=== PATIENT | female | born 1975 | race African-American/Black ===

== ENCOUNTER 2016-08-05 17:43 | Emergency (ER) | payer MEDICAID, OTHER ==
[~2016-08-05] VITALS: Ht 157.5 cm; Wt 108.0 kg
[~2016-08-05 17:43] MED LIST: AMLODAPINE; CLONIDINE; HCTZ; INSULIN; LOSA50TA3; LOSARTAN; METO10TA3
[2016-08-05] MEDS ORDERED: METHYLPREDNISOLONE SOD SUCC 125 MG/2 ML VIAL IV STA (18:13)
[2016-08-05] MEDS ORDERED: CEFTRIAXONE 1 G PREMIX 50 ML IV ONE (18:15)
[2016-08-05] MEDS ORDERED: IPRATROPIUM/ALBUTEROL 0.5-3(2.5)MG/3ML NEB HHN ONE (18:15)
[2016-08-05] MEDS ORDERED: AZITHROMYCIN 500 MG TABLET PO ONE (18:15)
[2016-08-05 19:28] LABS: BASOPHILS % 0.8 % (0.0-2.0); EOSINOPHILS % 0.5 % (0.0-5.0); HEMATOCRIT. 37.3 % (36.0-48.0); LYMPHOCYTES % 36.4 % (20.0-50.0); MEAN CORPUSCULAR HEMOGLOBIN 31.7 pg (28.0-32.0); MEAN CORPUSCULAR HGB CONC 32.1 g/dL (31.0-37.0); MEAN PLATELET VOLUME 9.8 fl (7.4-10.4); MONOCYTES % 9.5 % (2.0-8.0); NEUTROPHILS % 52.8 % (40.0-76.0); PLATELET 195 x1000/uL (130-400); RED BLOOD CELL COUNT 3.77 mill/uL (4.2-5.4); RED CELL DISTRIBUTION WIDTH 18.3 % (11.6-14.6); WHITE BLOOD COUNT 6.7 x1000/uL (4.5-11.0)
[2016-08-05] MEDS ORDERED: PREDNISONE 20MG TABLET PO ONE (19:30)
[2016-08-05] MEDS ORDERED: LORAZEPAM 1MG TABLET PO ONE (19:30)
[2016-08-05 19:32] LABS: CHLORIDE 97 mEq/L (98-107); INDEX HEMOLYSI 1 (1-3); INDEX ICTERIC 1 (1-4); INDEX LIPEMIC 1 (1-3)
[2016-08-05 19:33] LABS: ALBUMIN 3.6 g/dL (3.4-5.0); CALCIUM 9.4 mg/dL (8.5-10.1); INR 1.1; LIPASE 114 IU/L (73-393); PARTIAL THROMBOPLASTIN TIME 24.3 sec (24.0-34.0); PROTHROMBIN TIME 10.9 sec
[2016-08-05 19:39] LABS: ALANINE AMINOTRANSFERASE 11 IU/L (13-61); ANION GAP 19; CARBON DIOXIDE 25 mEq/L (21-32); UREA NITROGEN BLOOD 27 mg/dL (7-21); eGFR 9 mL/min (>60)
[2016-08-05 19:42] LABS: LACTIC ACID 3.1 mmol/L (0.4-2.0); NT PRO B-TYPE NATRIURETIC PEP 3029 pg/mL (5-125); TROPONIN I 0.03 ng/mL (0.00-0.04)
[2016-08-05] MEDS ORDERED: CEFTRIAXONE SODIUM 1 G/VIAL IM ONE (19:45)
[2016-08-05] MEDS ORDERED: LIDOCAINE HCL 1% 20ML VIAL (Pyxis) INJ INFIL ONE (20:00)
[2016-08-05] MEDS ORDERED: MORPHINE SULFATE 10 MG/ML CPJ IM ONE (21:00)
[2016-08-05] MEDS ORDERED: ONDANSETRON HCL 4MG/2ML VIAL IV ONE (22:00)
[2016-08-05] MEDS ORDERED: POTASSIUM CHLORIDE 40MEQ/30ML UDC PO ONE (22:15)
[2016-08-05] MEDS: POTASSIUM CHLORIDE 20MEQ TABLET SR PO NR (22:29)
[2016-08-05] MEDS ORDERED: HYDRALAZINE 20MG/ML VIAL IV NR (22:30)
[2016-08-05] MEDS ORDERED: HYDRALAZINE (NEO) 1MG/ML IV ONE (22:30)
[2016-08-05 22:39] VITALS: BP 218/95
== END 2016-08-05 22:48 | disposition short-term general hospital (02) ==
LOC: ER 17:43
DX: R06.02 Shortness of breath (principal); Z88.1 Allergy status to other antibiotic agents; Z88.8 Allergy status to other drugs, medicaments and biological substances; Z79.899 Other long term (current) drug therapy; E11.22 Type 2 diabetes mellitus with diabetic chronic kidney disease; Z99.2 Dependence on renal dialysis; F17.200 Nicotine dependence, unspecified, uncomplicated; I12.0 Hypertensive chronic kidney disease with stage 5 chronic kidney disease or end stage renal disease; N18.6 End stage renal disease
CPT/HCPCS: 36415; 71010; 80053; 83605; 83690; 83880; 84484; 85025; 85610; 85730; 87040; 93005; 94640; 96372; 96374; 96375; 99285; C1893; J0360; J0696; J2270; J2405; J3490; J7512; Z7610; J7620

== ENCOUNTER 2016-12-08 02:08 | Inpatient (IN) | payer OTHER, MEDICAID ==
[~2016-12-08] VITALS: Ht 162.6 cm; Wt 108.4 kg
[2016-12-08] MEDS ORDERED: ASPIRIN 81MG TABLET PO STA (03:14)
[2016-12-08] MEDS ORDERED: NITROGLYCERIN OINT 1GM/INCH UDPKT TD STA (03:14)
[2016-12-08] MEDS ORDERED: HYDRALAZINE 20MG/ML VIAL IV ONE (03:15)
[2016-12-08] MEDS ORDERED: LORAZEPAM 2MG/ML CPJ IV ONE (04:15)
[2016-12-08] MEDS ORDERED: MORPHINE SULFATE 4 MG/ML CPJ (NOT FOR IM USE) IV ONE (04:15)
[2016-12-08] MEDS ORDERED: ONDANSETRON HCL 4MG/2ML VIAL IV ONE (04:15)
[2016-12-08 04:27] LABS: BASOPHILS % 0.6 % (0.0-2.0); EOSINOPHILS % 0.4 % (0.0-5.0); HEMATOCRIT. 33.8 % (36.0-48.0); HEMOGLOBIN. 10.9 g/dL (12.0-16.0); LYMPHOCYTES % 8.8 % (20.0-50.0); MEAN CORPUSCULAR HEMOGLOBIN 32.2 pg (28.0-32.0); MEAN CORPUSCULAR VOLUME 99.7 fL (81.0-99.0); MEAN PLATELET VOLUME 9.9 fl (7.4-10.4); NEUTROPHILS % 82.2 % (40.0-76.0); PLATELET 234 x1000/uL (130-400); RED BLOOD CELL COUNT 3.39 mill/uL (4.2-5.4); RED CELL DISTRIBUTION WIDTH 17.5 % (11.6-14.6)
[2016-12-08 04:35] LABS: HCG SCREEN NEGATIVE; PARTIAL THROMBOPLASTIN TIME 21.2 sec (24.0-34.0); PROTHROMBIN TIME 10.7 sec
[2016-12-08 04:45] LABS: CARBON DIOXIDE 26 mEq/L (21-32); CHLORIDE 94 mEq/L (98-107); TROPONIN I 0.02 ng/mL (0.00-0.04)
[2016-12-08] MEDS ORDERED: LABETALOL 5MG/ML SYR 20 MG/4 ML SYRINGE IV ONE (04:45)
[2016-12-08 04:48] LABS: PHOSPHORUS 0.4 mg/dL (2.5-4.9)
[2016-12-08] MEDS ORDERED: SODIUM PHOS,M-BASIC-D-BASIC 20 MM in DEXT 5% WATER 243.3333 ML IV ONE (05:00)
[2016-12-08] MEDS ORDERED: INSULIN REGULAR (HUMULIN R) 300UNITS/3ML IV ONE (05:00)
[2016-12-08 08:25] VITALS: BP 219/94
[2016-12-08] MEDS ORDERED: CLOP75TA2 PO (09:13)
[2016-12-08] MEDS ORDERED: METROPOLOL PO (09:15)
[2016-12-08] MEDS ORDERED: ACETAMINOPHEN 325MG TABLET PO PRN (09:45)
[2016-12-08] MEDS ORDERED: LORAZEPAM 2MG/ML CPJ IV PRN (09:45)
[2016-12-08] MEDS ORDERED: NITROGLYCERIN 0.4MG TABLET SL SL PRN (09:45)
[2016-12-08] MEDS ORDERED: IPRATROPIUM/ALBUTEROL 0.5-3(2.5)MG/3ML NEB INH PRN (09:45)
[2016-12-08] MEDS ORDERED: MAGNESIUM/ALUMINUM HYDROXIDE/SIMETHICONE 30ML UDC PO PRN (09:45)
[2016-12-08] MEDS ORDERED: DIPHENHYDRAMINE 50MG/ML VIAL IV PRN (09:45)
[2016-12-08] MEDS ORDERED: CLONIDINE 0.1MG TABLET PO PRN (09:45)
[2016-12-08] MEDS ORDERED: NA PHOS,M-B/NA PHOS,DI-BA ENEMA 118ML PR PRN (09:45)
[2016-12-08] MEDS ORDERED: DOCUSATE SODIUM 100MG CAPSULE PO PRN (09:45)
[2016-12-08] MEDS ORDERED: DEXTROSE 50% WATER 50ML SYRINGE IV PRN ×2 (09:45→13:30)
[2016-12-08] MEDS ORDERED: GUAIFENESIN 200MG/10ML SUGAR FREE UDC PO PRN (09:45)
[2016-12-08] MEDS ORDERED: TRAMADOL 50MG TABLET PO PRN (09:45)
[2016-12-08] MEDS: FOLIC ACID/VITAMIN B COMP W-C TABLET PO SCH (10:26)
[2016-12-08] MEDS: ONDANSETRON HCL 4MG/2ML VIAL IV PRN ×2 (10:27→16:40)
[2016-12-08] MEDS: AMLODIPINE 10MG TABLET PO SCH (10:27)
[2016-12-08] MEDS: MORPHINE SULFATE 4 MG/ML CPJ (NOT FOR IM USE) IV PRN ×2 (10:28→16:41)
[2016-12-08] MEDS: INSULIN LISPRO 100 UNITS/ML SUBCUT SCH ×5 (11:32→21:00)
[2016-12-08] MEDS: LISINOPRIL 20MG TABLET PO SCH ×2 (11:43→21:52)
[2016-12-08] MEDS: PANTOPRAZOLE SODIUM 40 MG/VIAL IV SCH (11:43)
[2016-12-08] MEDS: METOPROLOL TARTRATE 25MG TABLET PO SCH ×2 (11:43→21:52)
[2016-12-08] MEDS: INSULIN DETEMIR UD 100 UNITS/ML SYR SUBCUT SCH (11:51)
[2016-12-08 12:00] VITALS: BP 200/76
[2016-12-08] MEDS ORDERED: BLOOD SUGAR DIAGNOSTIC STRIP TEST SCH (12:40)
[2016-12-08] MEDS ORDERED: INSULIN LISPRO 100 UNITS/ML SUBCUT SCH ×2 (13:10→18:10)
[2016-12-08] MEDS: METOCLOPRAMIDE HCL 5MG TABLET PO SCH ×3 (13:35→21:52)
[2016-12-08] MEDS: SUCRALFATE 1 G/10 ML UDC PO SCH ×3 (13:36→21:52)
[2016-12-08] MEDS: HYDRALAZINE HCL 50MG TABLET PO SCH ×2 (13:36→18:00)
[2016-12-08] MEDS: ERYTHROMYCIN LACTOBIONATE 500 MG in SODIUM CHLORIDE 0.9% 100 ML IV SCH ×2 (13:36→17:58)
[2016-12-08] MEDS ORDERED: HYDRALAZINE HCL 50MG TABLET PO SCH (14:00)
[2016-12-08 15:59] LABS: CREATINE KINASE MB FRACTION 1.2 ng/mL (0.5-3.6); TROPONIN I 0.03 ng/mL (0.00-0.04)
[2016-12-08 16:00] VITALS: BP 144/65
[2016-12-08] MEDS: BLOOD SUGAR DIAGNOSTIC STRIP TEST SCH ×2 (16:57→21:53)
[2016-12-08 20:00] VITALS: BP 154/70
[2016-12-08] MEDS ORDERED: ZOLPIDEM TARTRATE 5MG TABLET PO PRN (21:00)
[2016-12-09] VITALS (7 sets, daily range): BP systolic 104–146; BP diastolic 53–73
[2016-12-09 00:47] LABS: CREATINE KINASE MB FRACTION 1.4 ng/mL (0.5-3.6); TROPONIN I 0.04 ng/mL (0.00-0.04)
[2016-12-09] MEDS: HYDRALAZINE HCL 50MG TABLET PO SCH ×4 (01:12→17:50)
[2016-12-09] MEDS: SUCRALFATE 1 G/10 ML UDC PO SCH ×4 (06:45→20:12)
[2016-12-09] MEDS: METOCLOPRAMIDE HCL 5MG TABLET PO SCH ×4 (06:45→20:12)
[2016-12-09] MEDS: INSULIN LISPRO 100 UNITS/ML SUBCUT SCH ×6 (07:40→17:48)
[2016-12-09] MEDS: BLOOD SUGAR DIAGNOSTIC STRIP TEST SCH ×3 (07:40→17:40)
[2016-12-09] MEDS: FOLIC ACID/VITAMIN B COMP W-C TABLET PO SCH (08:13)
[2016-12-09] MEDS: METOPROLOL TARTRATE 25MG TABLET PO SCH (08:14)
[2016-12-09] MEDS: LISINOPRIL 20MG TABLET PO SCH (08:14)
[2016-12-09] MEDS: AMLODIPINE 10MG TABLET PO SCH (08:14)
[2016-12-09] MEDS: PANTOPRAZOLE SODIUM 40 MG/VIAL IV SCH (09:00)
[2016-12-09] MEDS: INSULIN DETEMIR UD 100 UNITS/ML SYR SUBCUT SCH (10:00)
[2016-12-09] MEDS ORDERED: PANTOPRAZOLE 40MG DR TABLET PO SCH (10:30)
== END 2016-12-09 21:20 | disposition short-term general hospital (02) | DRG 73 ==
LOC: ER 02:08 → 7WST 04:47 → EDBEDREQ 04:51 → ENRESERV 04:56
PROVIDERS: ADMIT Internal Medicine; ATTEND Internal Medicine
PROC: 5A1D00Z (ICD-10-PCS; principal; 2016-12-09)
DX: E11.43 Type 2 diabetes mellitus with diabetic autonomic (poly)neuropathy (principal); N18.6 End stage renal disease; I12.0 Hypertensive chronic kidney disease with stage 5 chronic kidney disease or end stage renal disease; E87.1 Hypo-osmolality and hyponatremia; Z68.41 Body mass index [BMI] 40.0-44.9, adult; I16.1 Hypertensive emergency; N17.9 Acute kidney failure, unspecified; K31.84 Gastroparesis; E11.65 Type 2 diabetes mellitus with hyperglycemia; E83.39 Other disorders of phosphorus metabolism; N28.1 Cyst of kidney, acquired; E66.9 Obesity, unspecified; E11.22 Type 2 diabetes mellitus with diabetic chronic kidney disease; Z99.2 Dependence on renal dialysis; Z90.49 Acquired absence of other specified parts of digestive tract; Z88.6 Allergy status to analgesic agent; Z88.1 Allergy status to other antibiotic agents; Z88.8 Allergy status to other drugs, medicaments and biological substances; Z86.73 Personal history of transient ischemic attack (TIA), and cerebral infarction without residual deficits; Z83.3 Family history of diabetes mellitus
CPT/HCPCS: 36415; 71010; 74176; 80053; 80061; 82550; 82553; 82962; 83036; 83690; 83735; 84100; 84443; 84484; 84703; 85025; 85610; 85730; 93005; 96365; 96366; 96375; 99291; C1893; C9113; J0360; J1364; J1815; J2060; J2270; J2405; J3490; J7030; J7050; J7060; J8597

== ENCOUNTER 2017-01-11 12:01 | Emergency (ER) | payer OTHER, MEDICAID ==
[~2017-01-11] VITALS: Ht 165.1 cm; Wt 100.0 kg
[~2017-01-11 12:01] MED LIST changes: +CLOP75TA16 PO; +METROPOLOL PO
[2017-01-11] MEDS: HYDROCHLOROTHIAZIDE 25MG TABLET PO ONE ×2 (14:41→14:54)
[2017-01-11] MEDS ORDERED: HYDRALAZINE HCL 25MG TABLET PO ONE (14:45)
[2017-01-11 14:54] LABS: BASOPHILS % 1.2 % (0.0-2.0); EOSINOPHILS % 1.1 % (0.0-5.0); HEMATOCRIT. 36.1 % (36.0-48.0); HEMOGLOBIN. 11.5 g/dL (12.0-16.0); LYMPHOCYTES % 16.9 % (20.0-50.0); MEAN CORPUSCULAR HEMOGLOBIN 32.1 pg (28.0-32.0); MEAN CORPUSCULAR VOLUME 100.5 fL (81.0-99.0); MEAN PLATELET VOLUME 9.3 fl (7.4-10.4); MONOCYTES % 7.7 % (2.0-8.0); NEUTROPHILS % 73.1 % (40.0-76.0); PLATELET 249 x1000/uL (130-400); RED BLOOD CELL COUNT 3.59 mill/uL (4.2-5.4); RED CELL DISTRIBUTION WIDTH 16.3 % (11.6-14.6)
[2017-01-11 17:01] VITALS: BP 203/96
== END 2017-01-11 17:04 | disposition home or self-care (01) ==
LOC: ER 12:24
DX: E11.649 Type 2 diabetes mellitus with hypoglycemia without coma (principal); I12.0 Hypertensive chronic kidney disease with stage 5 chronic kidney disease or end stage renal disease; N18.6 End stage renal disease; E11.22 Type 2 diabetes mellitus with diabetic chronic kidney disease; Z99.2 Dependence on renal dialysis; Z79.4 Long term (current) use of insulin; Z90.49 Acquired absence of other specified parts of digestive tract; Z79.899 Other long term (current) drug therapy; Z88.1 Allergy status to other antibiotic agents; Z88.8 Allergy status to other drugs, medicaments and biological substances; Z86.73 Personal history of transient ischemic attack (TIA), and cerebral infarction without residual deficits
CPT/HCPCS: 36415; 80048; 82962; 85025; 99284; J7030; Z7610

== ENCOUNTER 2018-06-08 18:31 | Emergency (ER) | payer MEDICARE, MEDICAID ==
[~2018-06-08] VITALS: Ht 167.6 cm; Wt 87.0 kg
[2018-06-08 18:35] VITALS: BP 91/30
== END 2018-06-08 20:59 | disposition left against medical advice (07) ==
LOC: ER 18:31
DX: Z53.21 Procedure and treatment not carried out due to patient leaving prior to being seen by health care provider (principal)

== ENCOUNTER 2019-10-08 09:58 | Inpatient (IN) | payer OTHER, MEDICAID ==
[~2019-10-08] VITALS: Ht 160 cm; Wt 117.9 kg
[~2019-10-08 09:58] MED LIST changes: -CLOP75TA16 PO; +CLOP75TA4 PO
[2019-10-08] MEDS ORDERED: SODIUM CHLORIDE 0.9% 1,000 ML IV ONE (10:10)
[2019-10-08] MEDS: CARVEDILOL 3.125 MG TABLET PO SCH (10:19)
[2019-10-08 10:33] LABS: BASOPHILS % 1.4 % (0.0-2.0); EOSINOPHILS % 1.9 % (0.0-5.0); HEMOGLOBIN. 9.2 g/dL (12.0-16.0); LYMPHOCYTES % 18.4 % (20.0-50.0); MEAN CORPUSCULAR VOLUME 103.1 fL (81.0-99.0); MEAN PLATELET VOLUME 11.3 fl (7.4-10.4); MONOCYTES % 8.1 % (2.0-8.0); NEUTROPHILS % 70.2 % (40.0-76.0); PLATELET 137 x1000/uL (130-400); RED BLOOD CELL COUNT 2.71 mill/uL (4.2-5.4)
[2019-10-08 10:41] LABS: INR 1.1; PROTHROMBIN TIME 11.5 sec (9.6-11.0)
[2019-10-08 10:44] LABS: CHLORIDE 104 mEq/L (98-107)
[2019-10-08] MEDS ORDERED: PIPERACILLIN/TAZ 3.375G PREMIX 50 ML IV ONE (11:15)
[2019-10-08] MEDS ORDERED: VANCOMYCIN 1 G PREMIX 200 ML IV ONE (11:15)
[2019-10-08] MEDS ORDERED: ONDANSETRON HCL 4MG/2ML INJ IV PRN (12:15)
[2019-10-08] MEDS ORDERED: DEXTROSE 50% WATER 50ML SYRINGE IV PRN (12:15)
[2019-10-08] MEDS ORDERED: ACETAMINOPHEN 325MG TABLET PO PRN (12:15)
[2019-10-08 17:00] VITALS: BP_SYST 106; BP_DIAS 60; BP_DIAS 77
[2019-10-08] MEDS: BLOOD SUGAR DIAGNOSTIC STRIP TEST SCH ×3 (17:30→21:19)
[2019-10-08] MEDS: APIXABAN 2.5 MG TABLET PO SCH (17:32)
[2019-10-08] MEDS: SEVELAMER CARBONATE 800 MG TABLET PO SCH (17:32)
[2019-10-08] MEDS: INSULIN LISPRO 100 UNITS/ML SUBCUT SCH ×2 (17:50→21:00)
[2019-10-08] MEDS: INSULIN NPH (HUMULIN-N) 100 UNITS/ML 3ML VIAL SUBCUT SCH (17:50)
[2019-10-08 20:00] VITALS: BP 112/56
[2019-10-08] MEDS: PRAMIPEXOLE DI-HCL 0.25MG TABLET PO SCH (22:35)
[2019-10-09] VITALS (7 sets, daily range): BP systolic 95–164; BP diastolic 27–75
[2019-10-09 06:45] LABS: BASOPHILS % 1.3 % (0.0-2.0); HEMATOCRIT. 25.6 % (36.0-48.0); HEMOGLOBIN. 8.5 g/dL (12.0-16.0); LYMPHOCYTES % 20.2 % (20.0-50.0); MEAN CORPUSCULAR VOLUME 102.1 fL (81.0-99.0); MEAN PLATELET VOLUME 11.8 fl (7.4-10.4); MONOCYTES % 4.6 % (2.0-8.0); NEUTROPHILS % 70.9 % (40.0-76.0); PLATELET 120 x1000/uL (130-400); RED BLOOD CELL COUNT 2.51 mill/uL (4.2-5.4); RED CELL DISTRIBUTION WIDTH 16.6 % (11.6-14.6)
[2019-10-09] MEDS: BLOOD SUGAR DIAGNOSTIC STRIP TEST SCH ×4 (07:43→21:29)
[2019-10-09 08:11] LABS: PHOSPHORUS 5.4 mg/dL (2.5-4.9)
[2019-10-09] MEDS ORDERED: MIDODRINE HCL 5MG TABLET PO PRN (09:00)
[2019-10-09] MEDS: CARVEDILOL 3.125 MG TABLET PO SCH ×2 (09:00→21:49)
[2019-10-09] MEDS: ASPIRIN 81MG TABLET PO SCH (09:07)
[2019-10-09] MEDS: FUROSEMIDE 40MG TABLET PO SCH (09:07)
[2019-10-09] MEDS: SEVELAMER CARBONATE 800 MG TABLET PO SCH ×3 (09:07→17:12)
[2019-10-09] MEDS: APIXABAN 2.5 MG TABLET PO SCH ×2 (09:07→17:12)
[2019-10-09] MEDS: FOLIC ACID/VITAMIN B COMP W-C TABLET PO SCH (09:07)
[2019-10-09] MEDS: CLOPIDOGREL 75MG TABLET PO SCH (09:08)
[2019-10-09] MEDS: PRAMIPEXOLE DI-HCL 0.25MG TABLET PO SCH ×2 (09:08→21:49)
[2019-10-09] MEDS: INSULIN LISPRO 100 UNITS/ML SUBCUT SCH ×4 (09:12→21:00)
[2019-10-09] MEDS ORDERED: SODIUM POLYSTYRENE SULFONATE 15 G/60 ML BOT PO SCH (11:00)
[2019-10-09] MEDS: INSULIN NPH (HUMULIN-N) 100 UNITS/ML 3ML VIAL SUBCUT SCH ×3 (11:30→17:50)
[2019-10-09] MEDS ORDERED: EPOETIN ALFA 4000UNITS/ML VIAL SUBCUT SCH (21:00)
[2019-10-10] VITALS (7 sets, daily range): BP systolic 125–195; BP diastolic 53–104
[2019-10-10] MEDS: BLOOD SUGAR DIAGNOSTIC STRIP TEST SCH ×4 (06:48→20:53)
[2019-10-10] MEDS: INSULIN LISPRO 100 UNITS/ML SUBCUT SCH ×4 (07:01→20:54)
[2019-10-10] MEDS: INSULIN NPH (HUMULIN-N) 100 UNITS/ML 3ML VIAL SUBCUT SCH ×2 (07:04→17:50)
[2019-10-10] MEDS: APIXABAN 2.5 MG TABLET PO SCH ×2 (08:18→17:50)
[2019-10-10] MEDS: PRAMIPEXOLE DI-HCL 0.25MG TABLET PO SCH ×2 (08:18→20:53)
[2019-10-10] MEDS: FUROSEMIDE 40MG TABLET PO SCH (08:19)
[2019-10-10] MEDS: CARVEDILOL 3.125 MG TABLET PO SCH ×2 (08:19→20:53)
[2019-10-10] MEDS: SEVELAMER CARBONATE 800 MG TABLET PO SCH ×3 (08:19→17:50)
[2019-10-10] MEDS: ASPIRIN 81MG TABLET PO SCH (08:20)
[2019-10-10] MEDS: CLOPIDOGREL 75MG TABLET PO SCH (08:20)
[2019-10-10] MEDS: FOLIC ACID/VITAMIN B COMP W-C TABLET PO SCH (08:20)
[2019-10-10] MEDS ORDERED: HYDROCODONE/ACETAMINOPHEN 10/325MG TABLET PO PRN (09:00)
[2019-10-10 09:21] LABS: PHOSPHORUS 5.9 mg/dL (2.5-4.9)
[2019-10-10 10:07] LABS: BASOPHILS % 2.5 % (0.0-2.0); HEMATOCRIT. 25.8 % (36.0-48.0); HEMOGLOBIN. 8.5 g/dL (12.0-16.0); LYMPHOCYTES % 23.7 % (20.0-50.0); MEAN CORPUSCULAR HEMOGLOBIN 33.8 pg (28.0-32.0); MEAN CORPUSCULAR VOLUME 102.3 fL (81.0-99.0); MEAN PLATELET VOLUME 10.9 fl (7.4-10.4); MONOCYTES % 6.9 % (2.0-8.0); NEUTROPHILS % 63.9 % (40.0-76.0); PLATELET 121 x1000/uL (130-400); RED BLOOD CELL COUNT 2.52 mill/uL (4.2-5.4); RED CELL DISTRIBUTION WIDTH 16.8 % (11.6-14.6)
[2019-10-10] MEDS ORDERED: INSULIN LISPRO 100 UNITS/ML SUBCUT ONE (10:15)
[2019-10-10] MEDS ORDERED: CLONIDINE 0.1MG TABLET PO PRN (17:15)
[2019-10-10] MEDS: HYDRALAZINE 20MG/ML VIAL IV PRN (20:53)
[2019-10-10] MEDS ORDERED: ATORVASTATIN CALCIUM 40MG TABLET PO SCH (21:00)
[2019-10-11] VITALS (7 sets, daily range): BP systolic 108–185; BP diastolic 46–89
[2019-10-11] MEDS: HYDRALAZINE 20MG/ML VIAL IV PRN (04:58)
[2019-10-11] MEDS: BLOOD SUGAR DIAGNOSTIC STRIP TEST SCH ×3 (06:49→17:13)
[2019-10-11] MEDS: ASPIRIN 81MG TABLET PO SCH (08:23)
[2019-10-11] MEDS: PRAMIPEXOLE DI-HCL 0.25MG TABLET PO SCH (08:23)
[2019-10-11] MEDS: SEVELAMER CARBONATE 800 MG TABLET PO SCH ×3 (08:23→17:22)
[2019-10-11] MEDS: FOLIC ACID/VITAMIN B COMP W-C TABLET PO SCH (08:23)
[2019-10-11] MEDS: CLOPIDOGREL 75MG TABLET PO SCH (08:24)
[2019-10-11] MEDS: CARVEDILOL 3.125 MG TABLET PO SCH (08:24)
[2019-10-11] MEDS: APIXABAN 2.5 MG TABLET PO SCH ×2 (08:24→17:22)
[2019-10-11] MEDS: INSULIN NPH (HUMULIN-N) 100 UNITS/ML 3ML VIAL SUBCUT SCH (08:35)
[2019-10-11] MEDS: FUROSEMIDE 40MG TABLET PO SCH (08:39)
[2019-10-11] MEDS: INSULIN LISPRO 100 UNITS/ML SUBCUT SCH ×3 (08:42→17:25)
[2019-10-11] MEDS ORDERED: INSULIN NPH (HUMULIN-N) 100 UNITS/ML 3ML VIAL SUBCUT SCH ×2 (17:50)
== END 2019-10-11 18:33 | disposition home or self-care (01) | DRG 291 ==
LOC: ER 09:58 → MICUSO 11:42 → EDBEDREQ 11:49 → 6WST 16:58
PROVIDERS: ADMIT Internal Medicine; ATTEND Internal Medicine
PROC: 5A1D70Z Performance of Urinary Filtration, Intermittent, Less than 6 Hours Per Day (ICD-10-PCS; principal; 2019-10-08)
PROC: 5A1D70Z Performance of Urinary Filtration, Intermittent, Less than 6 Hours Per Day (ICD-10-PCS; 2019-10-09)
PROC: 5A1D70Z Performance of Urinary Filtration, Intermittent, Less than 6 Hours Per Day (ICD-10-PCS; 2019-10-10)
PROC: 5A1D70Z Performance of Urinary Filtration, Intermittent, Less than 6 Hours Per Day (ICD-10-PCS; 2019-10-11)
DX: I13.2 Hypertensive heart and chronic kidney disease with heart failure and with stage 5 chronic kidney disease, or end stage renal disease (principal); I50.31 Acute diastolic (congestive) heart failure; J96.00 Acute respiratory failure, unspecified whether with hypoxia or hypercapnia; N18.6 End stage renal disease; N25.81 Secondary hyperparathyroidism of renal origin; E87.2 Acidosis; D64.9 Anemia, unspecified; E11.22 Type 2 diabetes mellitus with diabetic chronic kidney disease; E11.319 Type 2 diabetes mellitus with unspecified diabetic retinopathy without macular edema; E11.43 Type 2 diabetes mellitus with diabetic autonomic (poly)neuropathy; E11.65 Type 2 diabetes mellitus with hyperglycemia; E83.39 Other disorders of phosphorus metabolism; K59.00 Constipation, unspecified; K21.9 Gastro-esophageal reflux disease without esophagitis; F32.9 Major depressive disorder, single episode, unspecified; I95.89 Other hypotension; M19.90 Unspecified osteoarthritis, unspecified site; E87.5 Hyperkalemia; G25.81 Restless legs syndrome; H54.61 Unqualified visual loss, right eye, normal vision left eye; L97.519 Non-pressure chronic ulcer of other part of right foot with unspecified severity; J45.909 Unspecified asthma, uncomplicated; I25.10 Atherosclerotic heart disease of native coronary artery without angina pectoris; I25.2 Old myocardial infarction; Z79.01 Long term (current) use of anticoagulants; Z79.02 Long term (current) use of antithrombotics/antiplatelets; Z79.4 Long term (current) use of insulin; Z82.49 Family history of ischemic heart disease and other diseases of the circulatory system; Z83.3 Family history of diabetes mellitus; Z87.891 Personal history of nicotine dependence; Z95.5 Presence of coronary angioplasty implant and graft; Z99.2 Dependence on renal dialysis; Z79.82 Long term (current) use of aspirin; Z86.718 Personal history of other venous thrombosis and embolism; Z86.79 Personal history of other diseases of the circulatory system; Z90.49 Acquired absence of other specified parts of digestive tract; Z91.11 Patient's noncompliance with dietary regimen; Z95.1 Presence of aortocoronary bypass graft; Z88.1 Allergy status to other antibiotic agents; Z88.2 Allergy status to sulfonamides; Z88.8 Allergy status to other drugs, medicaments and biological substances; Z86.73 Personal history of transient ischemic attack (TIA), and cerebral infarction without residual deficits; Z91.19 Patient's noncompliance with other medical treatment and regimen
CPT/HCPCS: 36415; 71045; 80048; 80053; 82962; 83605; 84100; 84145; 84484; 85025; 93005; 99285; J0360; J0885; J1815; J2543; J7030